=== PATIENT | male | born 2000 | race Caucasian/White ===

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

== ENCOUNTER 2019-11-18 10:18 | Emergency (ER) | payer BC, OTHER ==
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
[2019-11-18 10:52] VITALS: TEMP 97.9
--- NOTE | 2019-11-18 12:34 | RAD ---
EXAM:Chest,2 Views CLINICAL INDICATION: Chest, COMPARISON: There is no previous study for comparison. FINDINGS:Two views of the chest were obtained. The heart size is normal. The pulmonary vascularity is unremarkable. The lungs are clear. There is no consolidation, infiltrate, pleural effusion, or pneumothorax. The visualized osseous structures are unremarkable. IMPRESSION: Negative chest radiographs. Electronically signed by: Teddy Finnegan MD 11/18/2019 12:33 PM CDT
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
[2019-11-18 13:14] VITALS: BP 125/83; O2SAT 99
== END 2019-11-18 13:12 | disposition home or self-care (01) ==
LOC: ER 10:18
DX: M54.2 Cervicalgia (principal); R07.81 Pleurodynia; R53.81 Other malaise; H53.8 Other visual disturbances; Y09 Assault by unspecified means; Y92.481 Parking lot as the place of occurrence of the external cause